=== PATIENT | female | born 1950 ===

== ENCOUNTER → 2018-02-22 15:29 | Outpatient (REF) | payer MEDICARE, SELFPAY | LOC: LAB 15:29 | PROVIDERS: Visit Provider Otolaryngology Facial Plastic Surgery | DX: H66.3X2 Other chronic suppurative otitis media, left ear (principal); H72.02 Central perforation of tympanic membrane, left ear | CPT/HCPCS: 87070; 87077; 87147; 87205 ==

== ENCOUNTER → 2018-03-16 13:38 | Outpatient (REF) | payer MEDICARE, SELFPAY | LOC: LAB 13:38 | PROVIDERS: Visit Provider Otolaryngology Facial Plastic Surgery | DX: H65.492 Other chronic nonsuppurative otitis media, left ear (principal); H72.02 Central perforation of tympanic membrane, left ear | CPT/HCPCS: 87070; 87205 ==